=== PATIENT | female | born 1945 | race Caucasian/White ===

== ENCOUNTER 2016-06-29 23:23 | Inpatient (IN) | payer BC, OTHER ==
[~2016-06-29] VITALS: Ht 167.6 cm; Wt 49.6 kg
[2016-06-30] MEDS ORDERED: MUCINEX DM ER1 EACH PO (00:48)
[2016-06-30] MEDS ORDERED: CLARITIN,ALAVAR10 MG PO (00:48)
[2016-06-30] MEDS ORDERED: ASPIRIN EC325 MG PO (00:49)
[2016-06-30 02:00] LABS: HEMATOCRIT 36.5 % (36.0-46.0); MCH 31.6 PG (29.0-34.0); MCHC 34.5 G/DL (30.0-36.0); MCV 91.5 FL (83-99); MEAN PLAT.VOLUME 9.6 uM^3 (9.5-12.4); PLATELET COUNT 269 K/uL (156-360); RBC DIS.WIDTH-CV 11.9 % (11.8-14.6); RBC DIS.WIDTH-SD 38.7 % (39-53); RED BLOOD COUNT 3.99 M/uL (3.80-5.20)
[2016-06-30 02:16] LABS: CHLORIDE 103 mEq/L (99-109); POTASSIUM 3.7 mEq/L (3.7-5.4); SODIUM 136 mEq/L (136-147)
[2016-06-30 02:18] LABS: GLUCOSE 102 mg/dL (70-99)
[2016-06-30 02:19] LABS: ANION GAP 12 MEQ/L (2-14)
[2016-06-30 02:22] LABS: GFR ESTIMATE (CALCULATED) > 59 mL/min/
[2016-06-30 02:23] LABS: UREA NITROGEN (BUN) 5 mg/dL (9-23)
[2016-06-30 02:37] VITALS: BP 148/68
[2016-06-30 05:46] LABS: HEMATOCRIT 37.5 % (36.0-46.0); MCH 32.1 PG (29.0-34.0); MCHC 34.4 G/DL (30.0-36.0); MCV 93.3 FL (83-99); MEAN PLAT.VOLUME 10.1 uM^3 (9.5-12.4); PLATELET COUNT 267 K/uL (156-360); RBC DIS.WIDTH-CV 12.1 % (11.8-14.6); RBC DIS.WIDTH-SD 41.2 % (39-53); RED BLOOD COUNT 4.02 M/uL (3.80-5.20); WHITE BLOOD COUNT 10.4 K/uL (4.1-10.2)
[2016-06-30 06:07] LABS: ANION GAP 8 MEQ/L (2-14); CHLORIDE 100 MEQ/L (99-109); GFR ESTIMATE (CALCULATED) > 59 mL/min/; GLUCOSE 106 mg/dL (70-99); POTASSIUM 4.2 MEQ/L (3.7-5.4); SAMPLE HEMOLYSIS CHECK 0; SAMPLE ICTERIC CHECK 0; SAMPLE LIPEMIA CHECK 0; SODIUM 136 MEQ/L (136-147); UREA NITROGEN (BUN) 5 mg/dL (9-23)
[2016-06-30 08:09] VITALS: BP 123/60
[2016-06-30 10:18] VITALS: BP 131/60
[2016-06-30 14:00] VITALS: BP 138/63
[2016-06-30 16:06] VITALS: BP 133/58
[2016-06-30 20:32] VITALS: BP 106/54
[2016-07-01] VITALS (7 sets, daily range): BP systolic 108–155; BP diastolic 52–70
[2016-07-01 05:55] LABS: HEMATOCRIT 35.3 % (36.0-46.0); MCV 94.9 FL (83-99)
[2016-07-01 06:23] LABS: ANION GAP 8 MEQ/L (2-14); CHLORIDE 100 MEQ/L (99-109); GFR ESTIMATE (CALCULATED) > 59 mL/min/; GLUCOSE 119 mg/dL (70-99); POTASSIUM 4.1 MEQ/L (3.7-5.4); SAMPLE HEMOLYSIS CHECK 0; SAMPLE ICTERIC CHECK 0; SAMPLE LIPEMIA CHECK 0; SODIUM 137 MEQ/L (136-147); UREA NITROGEN (BUN) 5 mg/dL (9-23)
[2016-07-02 03:52] VITALS: BP 158/73
[2016-07-02 06:16] LABS: HEMATOCRIT 37.2 % (36.0-46.0); MCV 93.5 FL (83-99)
[2016-07-02 08:24] VITALS: BP 178/77
[2016-07-02 10:00] VITALS: BP 148/72
[2016-07-02 14:58] LABS: ADD MIUA? YES; BILIRUBIN NEGATIVE; BLOOD NEGATIVE; COLOR YELLOW ((YELLOW)); GLUCOSE (STRIP) NEGATIVE; KETONES NEGATIVE; LEUKOCYTES NEGATIVE; NITRITE NEGATIVE; PROTEIN (STRIP) NEGATIVE; SPECIFIC GRAVITY 1.005 (1.000-1.030)
[2016-07-02 16:00] LABS: AMORPHOUS PHOSPHATE CRYSTALS 1+; BACTERIA RARE; CASTS NONE SEEN /LPF; CRYSTALS PRESENT; EPITHELIAL CELLS NONE SEEN; MUCUS NONE SEEN; RED BLOOD CELLS 0-5 /HPF (0-5); WHITE BLOOD CELLS 0-5 /HPF (0-5)
[2016-07-02 17:21] VITALS: BP 161/72
[2016-07-02 23:30] VITALS: BP 144/67
[2016-07-03 07:39] VITALS: BP 180/70
[2016-07-03 11:45] VITALS: BP 174/74
[2016-07-03 12:13] VITALS: BP 164/56
[2016-07-03 16:00] VITALS: BP 170/80
[2016-07-03 23:32] VITALS: BP 174/77
[2016-07-04 01:30] VITALS: BP 168/74
[2016-07-04 04:11] VITALS: BP 170/76
[2016-07-04 07:32] VITALS: BP 161/74
[2016-07-04 17:25] VITALS: BP 159/75
[2016-07-05 00:14] VITALS: BP 170/79
[2016-07-05 08:37] VITALS: BP 146/75
[2016-07-05] MEDS ORDERED: NORCO 5/3251 TABLET PO (15:29)
[2016-07-05] MEDS ORDERED: LOVENOX40 MG/0.4 SC (15:31)
[2016-07-05] MEDS ORDERED: ZESTRIL5 MG PO (15:32)
[2016-07-05] MEDS ORDERED: THERA1 EAC1 PO (15:33)
[2016-07-05] MEDS ORDERED: ZOFRAN4 MG PO (15:35)
[2016-07-05] MEDS ORDERED: SENNA-DOCUSATE1 EAC1 PO ×2 (15:36→15:39)
== END 2016-07-05 13:20 | DRG 482 ==
LOC: EME 23:23 → 3EAST 06-30 00:38 → EDOF 06-30 00:38 → 3EAST 06-30 02:11
PROVIDERS: Emergency Medicine; Orthopaedic Surgery; Physician Assistant
PROC: 0QH704Z Insertion of Internal Fixation Device into Left Upper Femur, Open Approach (ICD-10-PCS; principal; 2016-06-30)
DX: S72.012A Unspecified intracapsular fracture of left femur, initial encounter for closed fracture (principal); W19.XXXA Unspecified fall, initial encounter; Y92.018 Other place in single-family (private) house as the place of occurrence of the external cause; F17.200 Nicotine dependence, unspecified, uncomplicated; N99.89 Other postprocedural complications and disorders of genitourinary system; R33.9 Retention of urine, unspecified; R03.0 Elevated blood-pressure reading, without diagnosis of hypertension; M19.90 Unspecified osteoarthritis, unspecified site
CPT/HCPCS: 71010; 73502; 76000; 80048; 80048 91; 81003; 85014; 85018; 85027; 86850; 86900; 86901; 87086; 94799; 97530 GO; 99281; 99285; C1713; J0690; J1170; J1650; J2250; J2405; J3010; J7120

== ENCOUNTER 2016-07-05 13:26 | Inpatient (IN) | payer BC, OTHER ==
[~2016-07-05] VITALS: Ht 168.9 cm; Wt 50.3 kg
[~2016-07-05 13:26] MED LIST: ASPIRIN EC325 MG PO; CLARITIN,ALAVAR10 MG PO; MUCINEX DM ER1 EACH PO
[2016-07-05 14:28] VITALS: BP 118/54
[2016-07-05] MEDS ORDERED: NORCO 5/3251 TABLET PO (15:29)
[2016-07-05] MEDS ORDERED: LOVENOX40 MG/0.4 SC (15:31)
[2016-07-05] MEDS ORDERED: ZESTRIL5 MG PO (15:32)
[2016-07-05] MEDS ORDERED: THERA1 EAC1 PO (15:33)
[2016-07-05] MEDS ORDERED: ZOFRAN4 MG PO (15:35)
[2016-07-05] MEDS ORDERED: SENNA-DOCUSATE1 EAC1 PO ×2 (15:36→15:39)
[2016-07-05 16:24] LABS: HEMATOCRIT 37.3 % (36.0-46.0); MCHC 34.3 G/DL (30.0-36.0); MCV 93.3 FL (83-99); MEAN PLAT.VOLUME 9.9 uM^3 (9.5-12.4); PLATELET COUNT 319 K/uL (156-360); RBC DIS.WIDTH-CV 12.6 % (11.8-14.6); RBC DIS.WIDTH-SD 43.2 % (39-53)
[2016-07-05 16:26] LABS: WHITE BLOOD COUNT 5.6 K/uL (4.1-10.2)
[2016-07-05 17:50] LABS: ALKALINE PHOSPHATASE 75 IU/L (3-129); ANION GAP 10 MEQ/L (2-14); CHLORIDE 98 MEQ/L (99-109); GFR ESTIMATE (CALCULATED) > 59 mL/min/; GLUCOSE 166 mg/dL (70-99); SAMPLE HEMOLYSIS CHECK 0; SAMPLE ICTERIC CHECK 0; SAMPLE LIPEMIA CHECK 0; SODIUM 135 MEQ/L (136-147); TOTAL BILIRUBIN 0.3 MG/DL (0.0-1.0); UREA NITROGEN (BUN) 11 mg/dL (9-23)
[2016-07-06] VITALS: BP 148/69
[2016-07-06 06:04] VITALS: BP 149/70
[2016-07-06 15:44] VITALS: BP 137/57
[2016-07-07 04:58] VITALS: BP 139/63
[2016-07-07 15:30] VITALS: BP 125/53
[2016-07-08 05:34] VITALS: BP 171/73
[2016-07-08 06:28] VITALS: BP 150/67
[2016-07-08 15:16] VITALS: BP 111/54
[2016-07-09 05:34] VITALS: BP 139/63
[2016-07-09] MEDS ORDERED: LOVENOX40 MG/0.4 SC (12:37)
[2016-07-09 15:53] VITALS: BP 133/58
[2016-07-09] MEDS ORDERED: NORCO 5/3251 TABLET PO (15:55)
[2016-07-09] MEDS ORDERED: ZESTRIL5 MG PO (15:55)
[2016-07-09] MEDS ORDERED: BACTRIM,SEPT1 TABLET PO (15:55)
[2016-07-09] MEDS ORDERED: SENNA-DOCUSATE1 EAC1 PO (15:55)
[2016-07-10 04:42] VITALS: BP 114/54
[2016-07-10 05:41] LABS: HEMATOCRIT 36.5 % (36.0-46.0); MCH 30.8 PG (29.0-34.0); MCHC 32.6 G/DL (30.0-36.0); MCV 94.6 FL (83-99); RBC DIS.WIDTH-CV 13.4 % (11.8-14.6); RED BLOOD COUNT 3.86 M/uL (3.80-5.20); WHITE BLOOD COUNT 4.9 K/uL (4.1-10.2)
[2016-07-10 06:12] LABS: ANION GAP 11 MEQ/L (2-14); CHLORIDE 99 MEQ/L (99-109); GFR ESTIMATE (CALCULATED) > 59 mL/min/; GLUCOSE 80 mg/dL (70-99); POTASSIUM 4.3 MEQ/L (3.7-5.4); SAMPLE HEMOLYSIS CHECK 0; SAMPLE ICTERIC CHECK 0; SAMPLE LIPEMIA CHECK 0; SODIUM 137 MEQ/L (136-147); UREA NITROGEN (BUN) 12 mg/dL (9-23)
[2016-07-10 06:47] LABS: MEAN PLAT.VOLUME 9.6 uM^3 (9.5-12.4)
[2016-07-10 06:48] LABS: PLATELET COUNT 464 K/uL (156-360)
== END 2016-07-10 14:36 | DRG 560 ==
LOC: 3WEST 13:26
PROVIDERS: Physical Medicine & Rehabilitation Pain Medicine; Psychiatry & Neurology Neurology
PROC: F07M0ZZ Range of Motion and Joint Mobility Treatment of Musculoskeletal System - Whole Body (ICD-10-PCS; principal; 2016-07-05)
DX: S72.012D Unspecified intracapsular fracture of left femur, subsequent encounter for closed fracture with routine healing (principal); Y92.018 Other place in single-family (private) house as the place of occurrence of the external cause; W01.0XXD Fall on same level from slipping, tripping and stumbling without subsequent striking against object, subsequent encounter; N39.0 Urinary tract infection, site not specified; N99.89 Other postprocedural complications and disorders of genitourinary system; Y84.6 Urinary catheterization as the cause of abnormal reaction of the patient, or of later complication, without mention of misadventure at the time of the procedure; J44.9 Chronic obstructive pulmonary disease, unspecified; M62.541 Muscle wasting and atrophy, not elsewhere classified, right hand; M62.542 Muscle wasting and atrophy, not elsewhere classified, left hand; R26.2 Difficulty in walking, not elsewhere classified; R33.9 Retention of urine, unspecified; R03.0 Elevated blood-pressure reading, without diagnosis of hypertension; B96.20 Unspecified Escherichia coli [E. coli] as the cause of diseases classified elsewhere; D62 Acute posthemorrhagic anemia
CPT/HCPCS: 80048; 80053; 85027; 87077; 87086; 87186; 97110 GO; 97530 GP; J1650